=== PATIENT | female | born 1970 | race Caucasian/White ===

== ENCOUNTER → 2017-07-15 | Day surgery (SDC) | payer OTHER ==
[~2017-07-15] MED LIST: ACETAMINOPHEN/HYDROcodone 325 MG/5 MG TAB ONE; DICY10 PO; KETOROLAC TROMETHAMINE 30 MG/ML (IVP) VIAL IV PUSH ONE; LACTATED RINGER'S 1000 ML INJ 1,000 ML ONE; LORTA10 PO; MIDAZOLAM HCL 2 MG/2 ML VIAL ONE; MORPHINE SULFATE 4 MG/ML INJ ONE; ONDANSETRON HCL 4 MG/2 ML VIAL IV PUSH ONE; PAXI25TA3 PO; PROM25TA5 PO; PROPOFOL 200 MG/20 ML AMP IV ONE; SILV400T TOP; TORS20TA PO; ceFAZolin INJ 1,000 MG VIAL ONE
--- NOTE | 2017-07-15 13:48 | TN ---
cc: ELIUD BUTLER M.D. DATE OF SURGERY: 07/15/2017 PREOPERATIVE DIAGNOSIS Right knee internal derangement. POSTOPERATIVE DIAGNOSIS Right knee complex tear, medial meniscus. PROCEDURE Right knee arthroscopic surgery - subtotal medial meniscectomy. SURGEON Lisa Butler MD. ASSESSMENT Micki Jeffries PA-C. SPECIMEN None. ESTIMATED BLOOD LOSS None. COMPLICATIONS None. ANESTHESIA General. DRAINS None. TOURNIQUET TIME 50 minutes at 225 mmHg. CONDITION Stable. PLAN OF ACTIVITY Per orders. DETAILS OF PROCEDURE My telecom assistant, Micki Jeffries PA-C, was present for the entire surgical case. She was medically necessary for the entire case because of the complexity of the case and to facilitate the performance of the procedure. The SERVICE SUPPORT REPRESENTATIVE at the back table did not have the skill set for this case to manipulate the instruments, e.g., the multiple different types of arthroscopies, meniscal rongeurs and angelique. The patient was brought into the operating room and had satisfactory general anesthesia by Dr. Haddad of the department of anesthesia. The right lower extremity was prepped and draped in the usual sterile manner. The extremity was exsanguinated by Jaskaran wrap and tourniquet inflated to 225 mmHg. Routine anterolateral and anteromedial portals were made. Introduction of the arthroscopic instruments was performed. Examination of the patellofemoral compartment showed no significant synovitis, no loose bodies, no evidence of arthritis involving the patellofemoral compartment. The lateral compartment showed normal lateral meniscus, normal articular surfaces. The anterior cruciate ligament was found to be intact with no evidence of any recent or remote injury. The medial compartment showed normal articular surfaces on the medial femoral condyle and the medial tibial plateau. The patient was found to have a complex tear involving the posterior medial meniscus. A subtotal medial meniscectomy was performed using multiple different types of meniscal rongeurs and shaver. The knee was irrigated with copious amounts of sterile saline antibiotic solution. The arthroscopic instruments were removed. The tourniquet was deflated. The incision was closed with 3-0 nylon. Sterile dressings were applied. The patient tolerated the procedure well and arrived in the recovery room in stable and satisfactory condition. MD RICHAR Barajas/LILY /1:38 PM /1:43 PM
== END | disposition home or self-care (01) ==
LOC: ESDC 10:51
PROVIDERS: ATTEND Orthopaedic Surgery Orthopaedic Surgery of the Spine
DX: S83.231A Complex tear of medial meniscus, current injury, right knee, initial encounter (principal)
CPT/HCPCS: 01400; 29881; J0690; J1885; J2250; J2270; J2405; J3010; J7120